=== PATIENT | male | born 1970 | race Hispanic/Latino ===

== ENCOUNTER → 2021-04-17 09:39 | Outpatient (CLI) | payer MEDICAID, SELFPAY ==
[2021-04-17 11:56] LABS: COVID19 -Nasal RAPID Negative (Negative)
== END ==
PROVIDERS: Visit Provider Physician Assistant
DX: Z01.812 Encounter for preprocedural laboratory examination (principal); Z20.822 Contact with and (suspected) exposure to COVID-19
CPT/HCPCS: 87635; C9803

== ENCOUNTER 2021-04-19 13:21 | Day surgery (SDC) | payer MEDICAID, SELFPAY ==
[2021-04-19 13:42] VITALS: BMI 38.3
[2021-04-19 13:48] VITALS: BP 159/93; PULSE 78; RESP 16; TEMP 36.8; O2SAT 98
[2021-04-19] MEDS: ACETAMINOPHEN 325 MG TABLET 975 MG PO (14:02)
[2021-04-19] MEDS: CELECOXIB 200 MG CAPSULE 400 MG PO (14:02)
[2021-04-19] MEDS: GABAPENTIN 300 MG CAPSULE PO (14:02)
[2021-04-19] MEDS: LACTATED RINGERS 1,000 ML 42 ML IV (14:08)
--- NOTE | 2021-04-19 14:41 | PM.PREOP ---
Pre-operative Note COVID-19 COVID-19 status: Negative Result date/Date tested (Pos, Neg/Pending): 04/17/21 Interval Note History & Physical reviewed/Exam performed by Physician: Yes Changes to H&P: No
--- NOTE | 2021-04-19 14:43 | SUR.PREOP ---
Block start time 1428 for Intrascaline block to left shoulder. Time out 1434. Injection Time 1437. Monitoring initiated and maintained throughout procedure. Patient remained stable throughout procedure, no adverse reactions noted. Block end time 1440.
--- NOTE | 2021-04-19 14:43 | PM.PROC.1 ---
Procedures Date/Time Date of procedure: 04/19/21 Time of procedure: 14:38 Nerve Block Time out performed: Yes Nerve blocks: brachial plexus (intrascalene) Procedure successful: Yes Patient tolerated procedure: well and no complications Additional comments: Intrascalene block performed for post-op pain control at surgeon request. Patient was positioned with IV, O2, monitors and rescue meds available. Prepped and timeout performed. Target identified with continuous ultrasound guidance. 20 mL of bupivicaine 0.5% was injected perineurally with intermittent aspiration and injection. No blood, no paresthesias, no acute complications.
[2021-04-19] MEDS: CEFAZOLIN 1 GM VIAL 2 GM IV (15:08)
--- NOTE | 2021-04-19 15:27 | SUR.OPER ---
Lateral on padded OR bed with hansen bag positioner, head on pillow, gel axillary roll in place, bottom leg bent with gel pad under knee to foot, upper leg straight and supported with pillows. Operative arm secured in shoulder positioning suspension device. non-operative arm secured on padded arm board. Safety belt at hip, tape over blanket securing lower legs.
[2021-04-19] MEDS: SODIUM CHLORIDE IRRIG SOLUTION 3,000 ML, EPINEPHrine 1 MG IRR (15:46)
[2021-04-19] MEDS: BUPIVACAINE 0.5% W/ EPI (PF) 30 ML VIAL INJ (15:46)
[2021-04-19 16:10] VITALS: BP 135/78; PULSE 78; RESP 16; TEMP 36.6; O2SAT 96
--- NOTE | 2021-04-19 16:11 | P.OP_ITS ---
Operative Date/Time/Diagnoses Date of procedure: 04/19/21 Time of procedure: 16:11 Pre-op diagnosis: left shoulder high-grade partial-thickness rotator cuff tear Post-op diagnosis: same Procedure & Clinicians Procedure: 1. Arthroscopic rotator cuff repair, left shoulder 2. Arthroscopic subacromial decompression Same procedure as scheduled: Yes Indications: patient is a 51-year-old gentleman who injured his left shoulder. His MRI shows a high-grade partial-thickness rotator cuff tear at the junction of the supra and infraspinatus. This has not improved with nonoperative measures. After discussion of the risks benefits and alternatives, the patient has agreed to proceed with rotator cuff repair. Risks discussed included but were not limited to: Failure to improve, stiffness, infection, nerve damage, deep venous thrombosis, pulmonary embolism, stroke, myocardial infarction, permanent paralysis, aspiration pneumonia and . Surgeon: Rashad Moreno Dentist/Owner: Rony Villar Click Yes if Unassisted: Yes Anesthesia Type: General, Peripheral nerve block and Local Operative Notes Findings: 1. normal glenohumeral cartilage 2.Normal glenohumeral labrum 3.Normal glenohumeral ligaments 4.Inflamed synovium especially in the rotator interval 5.Intact appearing subscapularis 6.Intact appearing biceps including biceps origin on the glenoid 7.Intact supraspinatus 8.Intact infraspinatus but some area that appeared to have some scarring at the junction between the supraspinatus and infraspinatus. This area was marked with a suture to allow evaluation from the bursal surface 9.Normal axillary pouch 10.Bursal surface of the cuff softened to palpation in the area of the percutaneously placed suture. 11.Type 2 acromion with impingement lesion 12.Acromioclavicular joint not visualized due to lack of preoperative symptoms 13.Range of motion unrestricted and no evidence for pathologic laxity. Closure Type: primary Specimen(s): none sent Prosthetic devices, grafts, tissues, transplants, or devices: One Mitek Healix self punching BioComposite anchor, 4.9 mm diameter. Applied: implant(s) Estimated Blood Loss (mL): 10 Blood products transfused: none Procedure in detail: The patient was seen in the preoperative area where he identified his left shoulder as the operative site and this was marked with my initials. He underwent the induction of an interscalene block. He was then taken to the operating room and placed on the operating room table in a supine position where he underwent induction with general anesthetic. He received Ancef. His shoulder was examined under anesthesia. He was then repositioned the right lateral decubitus position with an axillary roll and padding for all pressure points. He was stabilized in this position using the hansen bag. The left arm was prepared from the fingertips to the base of the neck with ChloraPrep in the usual fashion and draped through sterile drapes. The arm was placed in 10 lb of balanced skin suspension. The subcutaneous landmarks were outlined with a marking pen and portal sites selected. The posterior portal was created for the arthroscope and diagnostic arthroscopy ensued with the results given above. The arthroscope was withdrawn from the humerus after percutaneously marking the abnormal area of rotator cuff on the articular surface. The scope was then placed subacromial bursa through the posterior portal. The suture was identified. The lateral portal was created and this area of the cuff was palpated and found to be softened and typical of a partial- thickness rotator cuff tear. A bursectomy was performed for visualization. The partial-thickness rotator cuff tear was taken down and bleeding bone established on the greater tuberosity. A suture tape was then placed through the rotator cuff placing both limbs of this from the articular surface to the bursal surface. The tail ends were then taken and placed through a self punching anchor and tightened to the greater tuberosity. This provided complete repair. The type 2 acromion was then converted to a type 1 acromion using the cutting block technique. All arthroscopic equipment was then removed, the wounds were closed with 4-0 Monocryl and Steri-Strips. Additional 0.25% Marcaine was injected into the soft tissues for postoperative pain control. Dressings of onofre rile 4x4s, and ABD and adhesive dressing were applied followed by a sling and the patient was transported to the recovery room in good condition having tolerated the procedure well. Complications: none Post-operative Condition: stable Disposition: PACU Plan for aftercare: The patient will be maintained on a standard small size rotator cuff tear protocol. He will be discharged home today.
[2021-04-19 16:15] VITALS: BP 143/75; PULSE 75; RESP 19; O2SAT 96
[2021-04-19 16:20] VITALS: BP 143/75; PULSE 76; RESP 16; O2SAT 95
[2021-04-19 16:25] VITALS: BP 145/76; PULSE 71; RESP 17; O2SAT 95
[2021-04-19 16:36] VITALS: BP 150/59; PULSE 73; RESP 22; TEMP 36.9; O2SAT 95
--- NOTE | 2021-04-19 17:23 | SUR.PHASEII ---
Addendum entered by Abigail Morocho R.N. 04/19/21 17:32: 1705 Patient comfortable, pleasant, cooperative. No questions after discharge teaching. Original Note: 1650 Assumed care, IV dc'd, assisted patient with dressing. Denies pain/nausea.
== END 2021-04-19 17:07 | disposition home or self-care (01) ==
PROVIDERS: PCP Family Medicine; Referring Provider Orthopaedic Surgery; Visit Provider Orthopaedic Surgery
PROC: (CPT 29827; principal; 2021-04-19 15:15)
DX: S46.012A Strain of muscle(s) and tendon(s) of the rotator cuff of left shoulder, initial encounter (principal); V43.52XA Car driver injured in collision with other type car in traffic accident, initial encounter; E66.9 Obesity, unspecified; Z68.38 Body mass index [BMI] 38.0-38.9, adult
CPT/HCPCS: 29827; 29826; 64415; C1776; J0171; J0690; J1100; J2405; J2704